=== PATIENT | male | born 1945 | race Hispanic/Latino ===

== ENCOUNTER 2019-10-17 18:20 | Inpatient (IN) | payer OTHER ==
[~2019-10-17] VITALS: Ht 172.7 cm; Wt 111.1 kg
[2019-10-17 19:10] LABS: CREATININE 1.8 mg/dL (0.5-1.5); POTASSIUM 4.7 mmol/L (3.5-5.1)
[2019-10-17 19:12] LABS: ALBUMIN 3.5 g/dL (3.5-5.0); BILIRUBIN,TOTAL 0.3 mg/dL (0.2-1.0); TOTAL PROTEIN, SERUM 7.3 g/dL (6.0-8.3)
[2019-10-17 19:16] LABS: BASOPHILS % (AUTO) 1.1 % (0.0-5.0); EOSINOPHILS % (AUTO) 9.1 % (0.0-8.0); HEMATOCRIT 37.7 % (42-54); LYMPHOCYTES % (AUTO) 32.5 % (21.0-51.0); MEAN CORPUSCULAR HEMOGLOBIN 34.6 pg (27.0-33.0); MEAN CORPUSCULAR HGB CONC 34.5 g/dL (32.0-36.0); MEAN CORPUSCULAR VOLUME 100.3 fL (79-99); MONOCYTES % (AUTO) 9.7 % (3.0-13.0); NEUTROPHILS % (AUTO) 47.2 % (40.0-77.0); PLATELET COUNT (AUTO) 95 K/uL (130-400); RED BLOOD CELL COUNT(AUTO) 3.76 MIL/uL (4.50-6.20); RED CELL DISTRIBUTION WIDTH 13.2 % (11.0-15.5); WHITE BLOOD COUNT (AUTO) 4.5 K/uL (4.8-10.8)
[2019-10-17 19:27] LABS: INR 0.99 (0.85-1.15); PARTIAL THROMBOPLASTIN TIME 31.6 SEC (26.3-35.5); PROTHROMBIN TIME 10.7 SEC (9.6-11.6)
[2019-10-17 19:28] LABS: B-TYPE NATRIURETIC PEPTIDE 228 pg/mL (0-100)
[2019-10-17] MEDS ORDERED: LACTULOSE 20 GM/30 ML UDCUP PO PRN (22:30)
[2019-10-17] MEDS ORDERED: ACETAMINOPHEN 325 MG TAB PO PRN ×2 (22:30)
[2019-10-17] MEDS ORDERED: ONDANSETRON HCL 4 MG/2 ML VIAL IV PRN (22:30)
[2019-10-17 23:12] LABS: THYROID STIMULATING HORMONE 2.62 uIU/mL (0.36-3.74)
[2019-10-18] VITALS (74 sets, daily range): BP systolic 114–191; BP diastolic 40–126
--- NOTE | 2019-10-18 00:20 | NUR ---
MAGNETIC GRINDER OPERATOR PAGED REGARDING HEART RATE 0025-MAGNETIC GRINDER OPERATOR RETURNED CALL, APPRAISED OF PT'S HEART RATE, INSTRUCTED TO CALL CARDIO
--- NOTE | 2019-10-18 00:30 | NUR ---
CARDIO PAGED 0030- DR BRISENO RETURNED CALL, APPRAISED OF PATIENT'S HEART RATE, RECEIVED ORDER TO TRANSFER TO ICU AND MEDICATION ORDER PLACED IN COMPUTER. CRAFT SUPERINTENDENT MADE AWARE OF ORDER TO TRANSFER
[2019-10-18] MEDS ORDERED: SPIR25TA6 PO (00:36)
[2019-10-18] MEDS ORDERED: DUTA0.5C18 PO (00:36)
[2019-10-18] MEDS ORDERED: TAMS-1 PO (00:36)
[2019-10-18] MEDS ORDERED: CARB-38 PO (00:36)
[2019-10-18] MEDS ORDERED: SACU1TAB PO (00:36)
[2019-10-18] MEDS ORDERED: FURO20TA4 PO (00:36)
[2019-10-18] MEDS ORDERED: AEC81 PO (00:36)
[2019-10-18] MEDS ORDERED: DOBUTAMINE 250MG/D5 250ML 250 ML IV SCH ×2 (00:45→19:30)
[2019-10-18 06:04] LABS: BASOPHILS % (AUTO) 1.1 % (0.0-5.0); EOSINOPHILS % (AUTO) 7.1 % (0.0-8.0); HEMATOCRIT 38.1 % (42-54); LYMPHOCYTES % (AUTO) 41.8 % (21.0-51.0); MEAN CORPUSCULAR HEMOGLOBIN 34.7 pg (27.0-33.0); MEAN CORPUSCULAR HGB CONC 34.1 g/dL (32.0-36.0); MEAN CORPUSCULAR VOLUME 101.6 fL (79-99); MONOCYTES % (AUTO) 9.2 % (3.0-13.0); NEUTROPHILS % (AUTO) 40.6 % (40.0-77.0); PLATELET COUNT (AUTO) 89 K/uL (130-400); RED BLOOD CELL COUNT(AUTO) 3.75 MIL/uL (4.50-6.20); RED CELL DISTRIBUTION WIDTH 13.2 % (11.0-15.5); WHITE BLOOD COUNT (AUTO) 4.4 K/uL (4.8-10.8)
[2019-10-18 06:28] LABS: CARBON DIOXIDE 29 mmol/L (21-32); CHLORIDE 103 mmol/L (101-111); CREATINE KINASE, TOTAL 80 U/L (21-232); CREATININE 1.8 mg/dL (0.5-1.5); GLOMERULAR FILTR. RATE CALC 39 mL/min (>60); GLUCOSE,RANDOM 100 mg/dL (70-105); MYOGLOBIN 70 ng/mL (10-92); POTASSIUM 4.1 mmol/L (3.5-5.1); SODIUM SERUM 138 mmol/L (136-145); TROPONIN I < 0.04 ng/mL (0.00-0.06); UREA NITROGEN, BLOOD 30 mg/dL (7-18)
[2019-10-18] MEDS: FAMOTIDINE 20MG TAB 20 MG TAB PO SCH ×2 (08:00→20:12)
--- NOTE | 2019-10-18 09:10 | NUR ---
Dr Fountain at bedside to assess patient, Dobutamine drip at 3 MCG/KG/Min, having frequent PVC's, new orders given to consult DR Garcia for pacemaker insertion. Dr Fountain notified Dr Garcia via phone about new consult.
--- NOTE | 2019-10-18 11:05 | NUR ---
Dr Garcia at bedside, new orders given for Pacemaker insertion for tomorrow, agrees with current infusion of Dobutamine Drip
--- NOTE | 2019-10-18 11:20 | NUR ---
Consult for Dr Lepe called in, spoke to Driss in the office
[2019-10-18] MEDS: HYDRALAZINE HCL 20 MG/ML VIAL IV PRN ×2 (11:37→20:12)
--- NOTE | 2019-10-18 11:45 | NUR ---
Spoke to LYNN Reynolds from [employer], [employer] will be calling Pacemaker themselves and IV 20 Ga to left hand and 18 Ga to right forearm will be sufficient for tomorrow's procedure, as per Gail.
--- NOTE | 2019-10-18 14:03 | NUR ---
DC PLAN VISITED WITH PATIENT. PATIENT LIVES WITH SPOUSE. INDEPENDENT ABLE TO PERFORM ADL'S. PATIENT HAS NO SERVICES OR DME'S. FEELS SAFE TO RETURN HOME. Addendum: 10/18/19 at 1405 by LINH GIBBS RN CM Amended: Links added.
[2019-10-18 14:28] LABS: APPEARANCE,URINE Clear (CLEAR); BILIRUBIN,URINE Negative (NEGATIVE); COLOR,URINE Yellow (YELLOW); GLUCOSE, URINE (UA) Negative (NEGATIVE); KETONES,URINE Negative (NEGATIVE); LEUKOCYTE ESTERASE ,URINE Negative (NEGATIVE); NITRATE,URINE Negative (NEGATIVE); OCCULT BLOOD,URINE Negative (NEGATIVE); PH,URINE 8.5 (5.0-8.0); PROTEIN,URINE POS 1+ mg/dL (NEGATIVE)
[2019-10-18 14:38] LABS: BACTERIA,URINE Rare /HPF (None Seen); RBC,URINE 0-1 /HPF (0-1); SQUAMOUS EPITHELIAL CELL,UR Rare /HPF (0-2); WBC,URINE 0-1 /HPF (0-1)
--- NOTE | 2019-10-18 16:30 | NUR ---
Attempted to get consent for CT guided bone marrow biopsy to be done per IR, but refused to sign stating he needed to speak to his son, which is a PA and states being afraid of having a nerve pinched with procedure. Procedure scheduled for tomorrow, will reattempt later when patient has a chance to speak to his son.
--- NOTE | 2019-10-18 17:09 | NUR ---
[id number] PATIENT SIGNED IM LETTER, I FAXED IM LETTER TO [phone] AND PLACED IN CHART UNDER CONSENT TAB.
[2019-10-18] MEDS ORDERED: DOBUTAMINE HCL IV SCH ×4 (19:30)
[2019-10-18] MEDS ORDERED: DEXTROSE 5% IV SCH ×4 (19:30)
[2019-10-18] MEDS ORDERED: WATER IV SCH ×4 (19:30)
[2019-10-19] VITALS (23 sets, daily range): BP systolic 99–165; BP diastolic 30–106
[2019-10-19 03:54] LABS: BASOPHILS % (AUTO) 1.1 % (0.0-5.0); EOSINOPHILS % (AUTO) 5.3 % (0.0-8.0); HEMATOCRIT 37.8 % (42-54); LYMPHOCYTES % (AUTO) 29.9 % (21.0-51.0); MEAN CORPUSCULAR HEMOGLOBIN 34.6 pg (27.0-33.0); MEAN CORPUSCULAR HGB CONC 34.7 g/dL (32.0-36.0); MEAN CORPUSCULAR VOLUME 99.7 fL (79-99); MONOCYTES % (AUTO) 7.3 % (3.0-13.0); NEUTROPHILS % (AUTO) 56.2 % (40.0-77.0); PLATELET COUNT (AUTO) 86 K/uL (130-400); RED BLOOD CELL COUNT(AUTO) 3.79 MIL/uL (4.50-6.20); RED CELL DISTRIBUTION WIDTH 13.2 % (11.0-15.5); WHITE BLOOD COUNT (AUTO) 5.3 K/uL (4.8-10.8)
[2019-10-19 04:40] LABS: CREATININE 1.7 mg/dL (0.5-1.5); PHOSPHORUS 3.2 mg/dL (2.5-4.9); POTASSIUM 3.9 mmol/L (3.5-5.1); THYROID STIMULATING HORMONE 2.97 uIU/mL (0.36-3.74)
[2019-10-19] MEDS ORDERED: MIDAZOLAM HCL 1 MG/ML 2ML VIAL ONE ×2 (07:27→08:13)
[2019-10-19] MEDS ORDERED: MEPERIDINE-PF 25 MG/ML SYG ONE ×2 (07:27→08:13)
[2019-10-19] MEDS ORDERED: BUPIVACAINE/PF 0.25% 30ML VIAL IJ ONE (07:27)
[2019-10-19] MEDS ORDERED: LIDOCAINE HCL 1% MDV 50ML VIAL ONE (07:28)
[2019-10-19] MEDS ORDERED: VANCOMYCIN 1GM+NS 250ML 500 ML IV ONE (07:28)
--- NOTE | 2019-10-19 07:30 | NUR ---
Dr Cyr at bedside, MD made aware about patient refusing CT Angio of neck and Bone Marrow biopsy
--- NOTE | 2019-10-19 07:35 | NUR ---
Transferred to [employer] Type [employer] Machine Operator vis bed accompanied per [employer] Type Screw Machine Operator nurses x2
[2019-10-19] MEDS ORDERED: IODIXANOL 320 MG/ML 100 ML VIAL ONE (08:05)
[2019-10-19] MEDS ORDERED: ACETAMINOPHEN-CODEINE 300/30MG TAB PO PRN (09:45)
--- NOTE | 2019-10-19 09:55 | NUR ---
Back in room from Director Of Supply Chain, S/P Biventricular Pacemaker Insertion, insertion site to left upper chest wall, no bleeding, swelling, or drainage noted, opsite in place. . AAOX3, unlabored respirations noted, denies having any pain
[2019-10-19] MEDS: FAMOTIDINE 20MG TAB 20 MG TAB PO SCH ×2 (10:33→20:36)
[2019-10-19] MEDS: ASPIRIN 81 MG EC TAB PO SCH (10:33)
[2019-10-19] MEDS: TAMSULOSIN HCL 0.4 MG CAP.ER.24H PO SCH (10:33)
[2019-10-19] MEDS: CARBIDOPA-LEVODOPA 25-100 TAB PO SCH ×3 (10:33→20:36)
[2019-10-19] MEDS: FUROSEMIDE 20 MG TABLET PO SCH (10:34)
[2019-10-19] MEDS: SPIRONOLACTONE 25 MG TAB PO SCH ×2 (10:34→20:35)
[2019-10-19] MEDS: **HM** DUTASTERIDE 0.5MG PO SCH (12:14)
--- NOTE | 2019-10-19 14:30 | NUR ---
Report given to LYNN Perera to be transferred to room 422
--- NOTE | 2019-10-19 14:45 | NUR ---
Transferred to room 422 via bed, pt's at bedside
--- NOTE | 2019-10-19 14:46 | NUR ---
ARRIVAL TO ROOM 422 PT IS AAOX3 DENIES CP DENIES SOB DENIES NV NO COMPLAINTS LEFT SIDE PPM SITE IS CLEAN DRY AND INTACT. FAMILY MEMBER IS AT BEDSIDE, CALL LIGHT WITHIN REACH.
[2019-10-20 01:04] VITALS: BP 128/82
[2019-10-20 04:22] VITALS: BP 147/76
[2019-10-20 05:20] LABS: BASOPHILS % (AUTO) 0.9 % (0.0-5.0); EOSINOPHILS % (AUTO) 7.8 % (0.0-8.0); HEMATOCRIT 40.2 % (42-54); LYMPHOCYTES % (AUTO) 25.8 % (21.0-51.0); MEAN CORPUSCULAR HEMOGLOBIN 35.3 pg (27.0-33.0); MEAN CORPUSCULAR HGB CONC 35.3 g/dL (32.0-36.0); MONOCYTES % (AUTO) 7.8 % (3.0-13.0); NEUTROPHILS % (AUTO) 57.3 % (40.0-77.0); PLATELET COUNT (AUTO) 98 K/uL (130-400); RED BLOOD CELL COUNT(AUTO) 4.02 MIL/uL (4.50-6.20); WHITE BLOOD COUNT (AUTO) 5.5 K/uL (4.8-10.8)
[2019-10-20 05:37] LABS: CREATININE 1.6 mg/dL (0.5-1.5)
[2019-10-20] MEDS ORDERED: CARV3.12 PO (07:10)
[2019-10-20] MEDS ORDERED: APIX5TAB PO (07:10)
[2019-10-20 08:00] VITALS: BP 139/67
[2019-10-20] MEDS: FUROSEMIDE 20 MG TABLET PO SCH (08:38)
[2019-10-20] MEDS: TAMSULOSIN HCL 0.4 MG CAP.ER.24H PO SCH (08:38)
[2019-10-20] MEDS: FAMOTIDINE 20MG TAB 20 MG TAB PO SCH (08:38)
[2019-10-20] MEDS: ASPIRIN 81 MG EC TAB PO SCH (08:39)
[2019-10-20] MEDS: CARBIDOPA-LEVODOPA 25-100 TAB PO SCH ×2 (08:40→14:58)
[2019-10-20] MEDS: SPIRONOLACTONE 25 MG TAB PO SCH (08:40)
[2019-10-20] MEDS: **HM** DUTASTERIDE 0.5MG PO SCH (09:00)
[2019-10-20] MEDS ORDERED: APIXABAN 5 MG TABLET PO SCH (09:00)
[2019-10-20 12:00] VITALS: BP 122/69
--- NOTE | 2019-10-20 14:53 | NUR ---
DENIES ANY DISTRESS OR PAIN. SEEN BY Connor MONTE, AND MOISES; AND MARIA FERNANDA DOBBS. OK TO DISCHARGE BY CONSULTANTS NOTED. AWAITING DR PAEZ' ROUNDING FOR DISCHARGE ORDERS.
[2019-12-02] MEDS ORDERED: ATOR40TA71 PO (12:18)
== END 2019-10-20 17:16 | disposition home or self-care (01) | DRG 242 ==
LOC: EDH 18:20 → OBSVTOIN 22:35 → EDHIP 22:35 → 4DH 23:28 → 2CH 10-18 02:27 → 4DH 10-19 15:14
PROVIDERS: ADMIT Internal Medicine; ATTEND Internal Medicine
PROC: 0JH606Z Insertion of Pacemaker, Dual Chamber into Chest Subcutaneous Tissue and Fascia, Open Approach (ICD-10-PCS; principal; 2019-10-19)
PROC: 02HK3JZ Insertion of Pacemaker Lead into Right Ventricle, Percutaneous Approach (ICD-10-PCS; 2019-10-19)
PROC: 02HL3JZ Insertion of Pacemaker Lead into Left Ventricle, Percutaneous Approach (ICD-10-PCS; 2019-10-19)
PROC: 02H63JZ Insertion of Pacemaker Lead into Right Atrium, Percutaneous Approach (ICD-10-PCS; 2019-10-19)
PROC: B51V1ZZ Fluoroscopy of Other Veins using Low Osmolar Contrast (ICD-10-PCS; 2019-10-19)
DX: I48.92 Unspecified atrial flutter (principal); I50.23 Acute on chronic systolic (congestive) heart failure; I13.0 Hypertensive heart and chronic kidney disease with heart failure and stage 1 through stage 4 chronic kidney disease, or unspecified chronic kidney disease; N17.9 Acute kidney failure, unspecified; D61.818 Other pancytopenia; R00.1 Bradycardia, unspecified; I25.10 Atherosclerotic heart disease of native coronary artery without angina pectoris; E78.5 Hyperlipidemia, unspecified; E86.9 Volume depletion, unspecified; G62.9 Polyneuropathy, unspecified; I65.21 Occlusion and stenosis of right carotid artery; N18.3 Chronic kidney disease, stage 3 (moderate); G20 Parkinson's disease; I48.19 Other persistent atrial fibrillation; I45.9 Conduction disorder, unspecified; Z79.82 Long term (current) use of aspirin; Z79.899 Other long term (current) drug therapy; Z87.891 Personal history of nicotine dependence; Z91.14 Patient's other noncompliance with medication regimen
CPT/HCPCS: 33208; 33225; 36415; 70450; 71045; 76770; 78582; 80048; 80053; 80061; 81001; 82550; 82607; 82746; 83874; 83880; 84100; 84425; 84443; 84484; 85025; 85378; 85610; 85730; 93005; 93880; 99156; 99157; A9540; A9558; C1769; G0378; J0360; J1250; J2175; J2250; J3370; J3490; J7060; Q9967

== ENCOUNTER 2019-12-03 07:23 | Day surgery (SDC) | payer OTHER ==
[2019-12-01 10:04] LABS: BASOPHILS % (AUTO) 0.8 % (0.0-5.0); EOSINOPHILS % (AUTO) 6.5 % (0.0-8.0); HEMATOCRIT 38.6 % (42-54); LYMPHOCYTES % (AUTO) 31.3 % (21.0-51.0); MEAN CORPUSCULAR HEMOGLOBIN 34.5 pg (27.0-33.0); MEAN CORPUSCULAR HGB CONC 34.2 g/dL (32.0-36.0); MEAN CORPUSCULAR VOLUME 100.8 fL (79-99); MONOCYTES % (AUTO) 7.1 % (3.0-13.0); NEUTROPHILS % (AUTO) 54.1 % (40.0-77.0); PLATELET COUNT (AUTO) 83 K/uL (130-400); RED BLOOD CELL COUNT(AUTO) 3.83 MIL/uL (4.50-6.20); RED CELL DISTRIBUTION WIDTH 12.5 % (11.0-15.5); WHITE BLOOD COUNT (AUTO) 5.2 K/uL (4.8-10.8)
[2019-12-01 10:16] LABS: CREATININE 1.5 mg/dL (0.5-1.5); POTASSIUM 4.5 mmol/L (3.5-5.1)
[2019-12-01 10:21] LABS: INR 1.02 (0.85-1.15); PARTIAL THROMBOPLASTIN TIME 34.3 SEC (26.3-35.5)
[2019-12-02 09:23] VITALS: BP 133/64
--- NOTE | 2019-12-02 10:00 | NUR ---
PLATELET INFORMED DR. MURRAY PAPPAS ASST OF ABNORMAL PLATELET LEVEL. SHE WILL INFORM HIM.
[2019-12-03] VITALS (10 sets, daily range): BP systolic 115–127; BP diastolic 58–81
[~2019-12-03] VITALS: Ht 170.2 cm; Wt 113.7 kg
[~2019-12-03 07:23] MED LIST: APIX5TAB PO; ATOR40TA71 PO; CARV3.12 PO; DUTA0.5C18 PO; FURO20TA4 PO; SACU1TAB PO; SODIUM CHLORIDE 0.9% 1000ML 1,000 ML IV SCH; SPIR25TA6 PO; TAMS-1 PO
--- NOTE | 2019-12-03 07:30 | NUR ---
PREOP PT ARRIVED VIA W/C IN NO DISTRESS. PT ORIENTED TO ROOM AND CALL LIGHT. PT HAS SMALL SCRATCHES TO BILAT LOWER EXTREMITIES. WILL CONTINUE TO MONITOR PT.
[2019-12-03] MEDS ORDERED: HEPARIN SODIUM 1000UNIT/ML 10ML VIAL ONE (08:52)
[2019-12-03] MEDS ORDERED: MIDAZOLAM HCL 1 MG/ML 2ML VIAL ONE (08:53)
[2019-12-03] MEDS ORDERED: LIDOCAINE HCL 2% 20ML ONE (08:53)
[2019-12-03] MEDS ORDERED: MEPERIDINE-PF 25 MG/ML SYG ONE (08:53)
--- NOTE | 2019-12-03 09:00 | NUR ---
report report given to rashad pal rn for continuation of care
--- NOTE | 2019-12-03 11:43 | NUR ---
report received report from chinmay uhff from confectionery laboratory manager. pt had a successful atrial flutter ablation. will be coming back soon with pt
--- NOTE | 2019-12-03 12:15 | NUR ---
PREOP RECEIVED PT POST A FLUTTER ABLATION. DRESSING TO RT GROIN CLEAN AND DRY. PT ORIENTED TO ROOM AND CALL LIGHT. WILL CONTINUE TO MONITOR PT
--- NOTE | 2019-12-03 12:25 | NUR ---
EKG EKG PERFORMED
--- NOTE | 2019-12-03 13:30 | NUR ---
REPORT CALLED DR GILMORE AND REPORTED CHANGE IN HEART RATE AND MILD CHEST DISCOMFORT OF #2. MD WILL SEND SOMEONE TO [facility]. OK TO APPLY O2 AT 2 L NC. PT LAYING COMFORTABLY IN STRETCHER AT THIS TIME.
--- NOTE | 2019-12-03 14:00 | NUR ---
biotronic rep called terry with [employer] to see what time he was going to come see pt. as per rep he will be here in about an hour.
--- NOTE | 2019-12-03 15:00 | NUR ---
[employer] rep terry here to eval pacemaker and adjust if necessary.
--- NOTE | 2019-12-03 15:15 | NUR ---
report terry called dr hall and new settings programmed. will follow up with md to see if pt cleared to go home as planned
--- NOTE | 2019-12-03 15:40 | NUR ---
report called dr hall. evelina to discharge pt home as planned
--- NOTE | 2019-12-03 16:05 | NUR ---
discharge pt taken out via w/c by nesha parisi rn. pt in no distress and free from hematoma or bleeding.
== END 2019-12-03 16:05 | disposition home or self-care (01) ==
LOC: DAH 07:23
PROVIDERS: ATTEND Internal Medicine Cardiovascular Disease
DX: I48.3 Typical atrial flutter (principal); R00.1 Bradycardia, unspecified; I44.2 Atrioventricular block, complete; I48.19 Other persistent atrial fibrillation; I11.0 Hypertensive heart disease with heart failure; I50.22 Chronic systolic (congestive) heart failure; E78.5 Hyperlipidemia, unspecified; Z95.0 Presence of cardiac pacemaker; Z98.890 Other specified postprocedural states; Z79.899 Other long term (current) drug therapy; Z79.01 Long term (current) use of anticoagulants; Z79.82 Long term (current) use of aspirin
CPT/HCPCS: 36415; 80048; 85025; 85610; 85730; 93005; 93613; 93621; 93653; A4215 ×2; A4216 ×2; A4221 ×2; A4222 ×2; A4223 ×6; A4606 ×2; A4615; A4649 ×2; A4663 ×2; C1730; C1732; C1893; C1894 ×2; J1644 ×2; J2175; J2250; J3490; J7030 ×2; 93286; 99156; 99157

== ENCOUNTER → 2020-01-13 | Outpatient (CLI) | payer OTHER ==
[~2020-01-13] MED LIST changes: -SODIUM CHLORIDE 0.9% 1000ML 1,000 ML IV SCH
== END | disposition home or self-care (01) ==
LOC: SHCH 08:36
PROVIDERS: ATTEND Internal Medicine Cardiovascular Disease
DX: I51.7 Cardiomegaly (principal); I48.20 Chronic atrial fibrillation, unspecified; I35.1 Nonrheumatic aortic (valve) insufficiency
CPT/HCPCS: 93306

== ENCOUNTER 2021-12-31 07:00 | Day surgery (SDC) | payer OTHER ==
[2021-12-28 09:44] VITALS: BP 150/62
[2021-12-28 11:40] LABS: EOSINOPHILS % (AUTO) 5.5 % (0.0-8.0); LYMPHOCYTES % (AUTO) 29.5 % (21.0-51.0); MEAN CORPUSCULAR HEMOGLOBIN 34.9 pg (27.0-33.0); MEAN CORPUSCULAR HGB CONC 34.1 g/dL (32.0-36.0); MEAN CORPUSCULAR VOLUME 102.5 fL (79-99); MONOCYTES % (AUTO) 8.7 % (3.0-13.0); NEUTROPHILS % (AUTO) 55.1 % (40.0-77.0); PLATELET COUNT (AUTO) 78 K/uL (130-400); RED BLOOD CELL COUNT(AUTO) 3.61 MIL/uL (4.50-6.20); RED CELL DISTRIBUTION WIDTH 13.6 % (11.0-15.5)
[2021-12-28 11:48] LABS: CREATININE 1.9 mg/dL (0.5-1.5); POTASSIUM 4.3 mmol/L (3.5-5.1)
[2021-12-28 11:51] LABS: INR 1.04 (0.85-1.15); PROTHROMBIN TIME 11.3 SEC (9.6-11.6)
[2021-12-28 11:52] LABS: PARTIAL THROMBOPLASTIN TIME 31.2 SEC (26.3-35.5)
[~2021-12-31] VITALS: Ht 152.4 cm; Wt 67.5 kg
[~2021-12-31 07:00] MED LIST changes: -DUTA0.5C18 PO; +DUTA0.5C37 PO
[2021-12-31 07:30] VITALS: BP 128/64
[2021-12-31 07:41] LABS: BASOPHILS % (AUTO) 0.8 % (0.0-5.0); EOSINOPHILS % (AUTO) 6.4 % (0.0-8.0); HEMATOCRIT 34.1 % (42-54); LYMPHOCYTES % (AUTO) 30.3 % (21.0-51.0); MEAN CORPUSCULAR HGB CONC 34.6 g/dL (32.0-36.0); MEAN CORPUSCULAR VOLUME 101.2 fL (79-99); MONOCYTES % (AUTO) 8.7 % (3.0-13.0); NEUTROPHILS % (AUTO) 53.5 % (40.0-77.0); PLATELET COUNT (AUTO) 69 K/uL (130-400); RED BLOOD CELL COUNT(AUTO) 3.37 MIL/uL (4.50-6.20); RED CELL DISTRIBUTION WIDTH 13.5 % (11.0-15.5); WHITE BLOOD COUNT (AUTO) 3.9 K/uL (4.8-10.8)
[2021-12-31] MEDS ORDERED: AMIO200T68 PO (08:13)
[2021-12-31] MEDS ORDERED: ICOS1CAP PO (08:13)
[2021-12-31] MEDS ORDERED: CARB-38 PO (08:13)
[2021-12-31] MEDS ORDERED: ERGO500093 PO (08:13)
[2021-12-31] MEDS ORDERED: ROSU40TA21 PO (08:13)
[2021-12-31 09:00] VITALS: BP 120/64
== END 2021-12-31 09:00 | disposition home or self-care (01) ==
LOC: DAH 07:00
PROVIDERS: ATTEND Internal Medicine Cardiovascular Disease
DX: I48.0 Paroxysmal atrial fibrillation (principal); I48.92 Unspecified atrial flutter; I10 Essential (primary) hypertension; I42.0 Dilated cardiomyopathy; E78.5 Hyperlipidemia, unspecified; Z79.899 Other long term (current) drug therapy; Z79.01 Long term (current) use of anticoagulants; Z53.8 Procedure and treatment not carried out for other reasons
CPT/HCPCS: 36415; 80048; 85025; 85610; 85730; 87426; 93005

== ENCOUNTER 2022-01-15 20:31 | Inpatient (IN) | payer OTHER ==
[~2022-01-15] VITALS: Ht 172.7 cm; Wt 72.6 kg
[~2022-01-15 20:31] MED LIST changes: -APIX5TAB PO; -ATOR40TA71 PO; +CARB-38 PO; -DUTA0.5C37 PO; +ERGO500093 PO; -FURO20TA4 PO; +ICOS1CAP PO; +ROSU40TA21 PO
[2022-01-15 21:08] LABS: BASOPHILS % (AUTO) 0.1 % (0.0-5.0); EOSINOPHILS % (AUTO) 3.7 % (0.0-8.0); HEMATOCRIT 37.9 % (42-54); LYMPHOCYTES % (AUTO) 13.7 % (21.0-51.0); MEAN CORPUSCULAR HEMOGLOBIN 34.4 pg (27.0-33.0); MEAN CORPUSCULAR HGB CONC 35.1 g/dL (32.0-36.0); MEAN CORPUSCULAR VOLUME 97.9 fL (79-99); MONOCYTES % (AUTO) 6.2 % (3.0-13.0); NEUTROPHILS % (AUTO) 74.3 % (40.0-77.0); PLATELET COUNT (AUTO) 81 K/uL (130-400); RED BLOOD CELL COUNT(AUTO) 3.87 MIL/uL (4.50-6.20); RED CELL DISTRIBUTION WIDTH 13.3 % (11.0-15.5); WHITE BLOOD COUNT (AUTO) 8.1 K/uL (4.8-10.8)
[2022-01-15 21:14] LABS: CREATININE 3.7 mg/dL (0.5-1.5); POTASSIUM 3.5 mmol/L (3.5-5.1)
[2022-01-15 21:16] LABS: INR 1.3 (0.85-1.15)
[2022-01-15 21:17] LABS: PARTIAL THROMBOPLASTIN TIME 42.9 SEC (26.3-35.5)
[2022-01-15 21:23] LABS: ALBUMIN 3.1 g/dL (3.5-5.0); TOTAL PROTEIN, SERUM 6.7 g/dL (6.0-8.3)
[2022-01-15] MEDS ORDERED: APIX5TAB PO (22:47)
[2022-01-15] MEDS ORDERED: CARB1TAB35 PO (22:47)
[2022-01-15] MEDS ORDERED: ROSU40TA21 PO (22:47)
[2022-01-15] MEDS ORDERED: ERGO500093 PO (22:47)
[2022-01-15] MEDS ORDERED: AMIO200T68 PO (22:47)
[2022-01-15] MEDS ORDERED: SACU1TAB PO (22:47)
[2022-01-15] MEDS ORDERED: CARV3.12 PO (22:47)
[2022-01-15] MEDS ORDERED: TAMS-1 PO (22:47)
[2022-01-16] MEDS ORDERED: LACTULOSE 20 GM/30 ML UDCUP PO PRN
[2022-01-16] MEDS ORDERED: ONDANSETRON 4MG INJ IV PRN
[2022-01-16] MEDS ORDERED: ACETAMINOPHEN 325 MG TAB PO PRN ×2
[2022-01-16] MEDS ORDERED: IPRATROPIUM 0.5 MG/2.5 ML INH IH PRN
[2022-01-16] MEDS: 0.9%NACL 1000ML 1,000 ML IV SCH ×2 (00:28→20:30)
[2022-01-16] MEDS: PHARMACY COMMUNICATION MISC SCH (00:30)
[2022-01-16 02:37] LABS: APPEARANCE,URINE CLEAR (CLEAR); BILIRUBIN,URINE NEGATIVE (NEGATIVE); COLOR,URINE LIGHT-YELLOW (YELLOW); GLUCOSE, URINE (UA) 50 mg/dL (NEGATIVE); KETONES,URINE NEGATIVE (NEGATIVE); LEUKOCYTE ESTERASE ,URINE NEGATIVE Leu/uL (NEGATIVE); NITRATE,URINE NEGATIVE (NEGATIVE); OCCULT BLOOD,URINE SMALL (NEGATIVE); PH,URINE 5.5 (5.0-8.0); PROTEIN,URINE 70 mg/dL (NEGATIVE); UROBILINOGEN,URINE 0.2 mg/dL (0.2-1.0)
[2022-01-16 02:45] LABS: MUCUS,URINE RARE LPF (None Seen); RBC,URINE 0-1 /HPF (0-1)
[2022-01-16 04:00] VITALS: BP 96/45
[2022-01-16 08:28] LABS: HEMATOCRIT 36.6 % (42-54); MEAN CORPUSCULAR HEMOGLOBIN 34.8 pg (27.0-33.0); MEAN CORPUSCULAR HGB CONC 35.5 g/dL (32.0-36.0); MEAN CORPUSCULAR VOLUME 97.9 fL (79-99); PLATELET COUNT (AUTO) 67 K/uL (130-400); RED BLOOD CELL COUNT(AUTO) 3.74 MIL/uL (4.50-6.20); RED CELL DISTRIBUTION WIDTH 13.1 % (11.0-15.5); WHITE BLOOD COUNT (AUTO) 7.4 K/uL (4.8-10.8)
[2022-01-16 08:29] VITALS: BP 113/54
[2022-01-16 08:35] LABS: CREATININE 3.7 mg/dL (0.5-1.5); POTASSIUM 3.8 mmol/L (3.5-5.1)
[2022-01-16] MEDS: CARBIDOPA-LEVODOPA 25-100 TAB PO SCH ×3 (08:49→21:12)
[2022-01-16] MEDS: TAMSULOSIN HCL 0.4 MG CAP.ER.24H PO SCH (08:51)
[2022-01-16] MEDS: CARVEDILOL 3.125 MG TABLET PO SCH ×2 (08:51→21:00)
[2022-01-16] MEDS: AMIODARONE 200 MG TABLET PO SCH (08:51)
[2022-01-16] MEDS: FAMOTIDINE 20MG TAB PO SCH ×2 (08:52→21:12)
[2022-01-16] MEDS: APIXABAN 5 MG TABLET PO SCH ×2 (08:52→21:12)
[2022-01-16] MEDS ORDERED: ERGOCALCIFEROL (VITAMIN D2) 50,000 UNIT CAPSULE PO SCH (09:00)
[2022-01-16 09:48] LABS: B-TYPE NATRIURETIC PEPTIDE 55 pg/mL (0-100)
[2022-01-16 12:37] VITALS: BP 92/42
[2022-01-16 16:15] VITALS: BP 92/24
[2022-01-16 20:00] VITALS: BP 118/52
[2022-01-16] MEDS: ATORVASTATIN 40 MG TABLET PO SCH (21:12)
[2022-01-17] VITALS: BP 112/45
[2022-01-17] MEDS: PHARMACY COMMUNICATION MISC SCH (00:30)
[2022-01-17 04:00] VITALS: BP 104/46
[2022-01-17 05:18] LABS: BASOPHILS % (AUTO) 0.1 % (0.0-5.0); EOSINOPHILS % (AUTO) 2.8 % (0.0-8.0); HEMATOCRIT 32.5 % (42-54); LYMPHOCYTES % (AUTO) 10.3 % (21.0-51.0); MEAN CORPUSCULAR VOLUME 97.3 fL (79-99); NEUTROPHILS % (AUTO) 78.5 % (40.0-77.0); PLATELET COUNT (AUTO) 54 K/uL (130-400); RED BLOOD CELL COUNT(AUTO) 3.34 MIL/uL (4.50-6.20); RED CELL DISTRIBUTION WIDTH 13.2 % (11.0-15.5)
[2022-01-17 05:38] LABS: ALBUMIN 2.8 g/dL (3.5-5.0); CREATININE 3.2 mg/dL (0.5-1.5); MAGNESIUM 1.9 mg/dL (1.80-2.40); PHOSPHORUS 3.3 mg/dL (2.5-4.9); POTASSIUM 3.6 mmol/L (3.5-5.1); URIC ACID 3.7 mg/dL (2.6-7.2)
[2022-01-17 08:00] VITALS: BP 106/45
[2022-01-17] MEDS: APIXABAN 5 MG TABLET PO SCH ×2 (08:43→21:28)
[2022-01-17] MEDS: CARBIDOPA-LEVODOPA 25-100 TAB PO SCH ×3 (08:43→21:22)
[2022-01-17] MEDS: AMIODARONE 200 MG TABLET PO SCH (08:43)
[2022-01-17] MEDS: TAMSULOSIN HCL 0.4 MG CAP.ER.24H PO SCH (08:44)
[2022-01-17] MEDS: CARVEDILOL 3.125 MG TABLET PO SCH ×2 (08:44→21:23)
[2022-01-17] MEDS: Vitamin B Complex/Vit C/Folic Acid PO SCH (08:44)
[2022-01-17] MEDS: FAMOTIDINE 20MG TAB PO SCH ×2 (08:44→21:22)
[2022-01-17 12:00] VITALS: BP 104/65
[2022-01-17 13:45] LABS: PROTEIN,URINE RANDOM 67.8 mg/dL (0-11.9)
[2022-01-17 16:00] VITALS: BP 125/67
[2022-01-17] MEDS: 0.9%NACL 1000ML 1,000 ML IV SCH (17:04)
[2022-01-17 20:44] VITALS: BP 131/74
[2022-01-17] MEDS: ATORVASTATIN 40 MG TABLET PO SCH (21:22)
[2022-01-18 00:18] VITALS: BP_SYST 115; BP_SYST 161; BP_DIAS 49; BP_DIAS 93
[2022-01-18] MEDS: PHARMACY COMMUNICATION MISC SCH (00:30)
[2022-01-18 04:31] VITALS: BP 102/60
[2022-01-18 05:44] LABS: BASOPHILS % (AUTO) 0.1 % (0.0-5.0); EOSINOPHILS % (AUTO) 2.2 % (0.0-8.0); LYMPHOCYTES % (AUTO) 11.4 % (21.0-51.0); MEAN CORPUSCULAR HEMOGLOBIN 34.3 pg (27.0-33.0); MEAN CORPUSCULAR HGB CONC 35.5 g/dL (32.0-36.0); MEAN CORPUSCULAR VOLUME 96.4 fL (79-99); MONOCYTES % (AUTO) 7.2 % (3.0-13.0); NEUTROPHILS % (AUTO) 78.2 % (40.0-77.0); PLATELET COUNT (AUTO) 58 K/uL (130-400); RED BLOOD CELL COUNT(AUTO) 3.94 MIL/uL (4.50-6.20); WHITE BLOOD COUNT (AUTO) 7.8 K/uL (4.8-10.8)
[2022-01-18 05:55] LABS: CREATININE 2.7 mg/dL (0.5-1.5); PHOSPHORUS 3.2 mg/dL (2.5-4.9); POTASSIUM 3.2 mmol/L (3.5-5.1)
[2022-01-18 07:07] VITALS: BP 133/82
[2022-01-18] MEDS ORDERED: LIDOCAINE HCL-MPF 1% 2ML VIAL IV PRN (08:00)
[2022-01-18] MEDS ORDERED: KCL 20 MEQ ERTAB PO PRN (08:00)
[2022-01-18] MEDS ORDERED: POTASSIUM CHLORIDE 20MEQ/100ML 100 ML IV PRN (08:00)
[2022-01-18] MEDS ORDERED: POTASSIUM CHLORIDE 10% ELIXIR 20 MEQ/15 ML UDCUP PO PRN (08:00)
[2022-01-18] MEDS ORDERED: POTASSIUM CHLORIDE 10% ELIXIR 20 MEQ/15 ML UDCUP PO SCH (08:30)
[2022-01-18] MEDS: CARBIDOPA-LEVODOPA 25-100 TAB PO SCH (08:37)
[2022-01-18] MEDS: Vitamin B Complex/Vit C/Folic Acid PO SCH (08:37)
[2022-01-18] MEDS: FAMOTIDINE 20MG TAB PO SCH (08:37)
[2022-01-18] MEDS: TAMSULOSIN HCL 0.4 MG CAP.ER.24H PO SCH (08:37)
[2022-01-18] MEDS: APIXABAN 5 MG TABLET PO SCH (08:37)
[2022-01-18 08:38] VITALS: BP 133/82
[2022-01-18] MEDS: AMIODARONE 200 MG TABLET PO SCH (08:38)
[2022-01-18] MEDS: CARVEDILOL 3.125 MG TABLET PO SCH (08:38)
== END 2022-01-18 11:20 | disposition home or self-care (01) | DRG 177 ==
LOC: EDH 20:31 → EDHIP 23:53 → 3AH 01-16 03:36
PROVIDERS: ADMIT Hospitalist; ATTEND Hospitalist
DX: U07.1 COVID-19 (principal); J12.82 Pneumonia due to coronavirus disease 2019; N17.0 Acute kidney failure with tubular necrosis; E87.1 Hypo-osmolality and hyponatremia; I42.9 Cardiomyopathy, unspecified; I13.0 Hypertensive heart and chronic kidney disease with heart failure and stage 1 through stage 4 chronic kidney disease, or unspecified chronic kidney disease; I50.9 Heart failure, unspecified; N18.32 Chronic kidney disease, stage 3b; E66.9 Obesity, unspecified; Z68.38 Body mass index [BMI] 38.0-38.9, adult; D69.6 Thrombocytopenia, unspecified; E11.22 Type 2 diabetes mellitus with diabetic chronic kidney disease; E78.00 Pure hypercholesterolemia, unspecified; N40.0 Benign prostatic hyperplasia without lower urinary tract symptoms; I48.91 Unspecified atrial fibrillation; E86.9 Volume depletion, unspecified; G20 Parkinson's disease; G89.29 Other chronic pain; Z95.0 Presence of cardiac pacemaker; Z87.891 Personal history of nicotine dependence; Z83.3 Family history of diabetes mellitus; Z82.49 Family history of ischemic heart disease and other diseases of the circulatory system
CPT/HCPCS: 36415; 71045; 76770; 80048; 80053; 81001; 82550; 82570; 83735; 83880; 84100; 84156; 84300; 84484; 84550; 85025; 85027; 85610; 85730; 87635; 93005; C9803; G0378; J7030